=== PATIENT | male | born 1950 | race Caucasian/White ===

== ENCOUNTER 2020-10-02 18:24 | Observation (INO) ==
[2020-10-02] MEDS ORDERED: PIPERACILLIN/TAZOBACTAM 3,375 MG in SODIUM CHLORIDE 0.9% 100 ML IV STA (18:52)
[2020-10-02 19:34] LABS: Basophils % 0.4 % (0.0-0.8); Eosinophils # 0.2 10*3/uL (0.0-0.87); Eosinophils % 1.8 % (0.00-10.9); Hematocrit 40.8 VOL% (42.0-52.0); Hemoglobin 12.8 GM/DL (14.0-18.0); Immature Granulocytes % 0.3 %; Immature Granulocytes Absolute 0.03 #; Lymphocytes # 2.4 10*3/uL (1.4-4.0); Lymphocytes % 25.8 % (21.2-54.2); Mean Corpuscular HGB Conc 31.4 GM/DL (32-36); Mean Corpuscular Volume 83.8 FL (87-102); Mean Platelet Volume 8.3 FL (9.6-12.0); Monocytes % 7.6 % (1.7-12.7); Neutrophils % 64.1 % (38.7-73.9); Platelet Count 276 T/CUMM (130-400); Red Blood Count 4.87 MC/CUMM (3.8-5.5); Red Cell Distribution Width 12.8 % (9.3-17.3); White Blood Count 9.3 T/CUMM (4-12)
[2020-10-02 19:53] LABS: Alanine Aminotransferase 52 U/L (16-61); Albumin 2.9 G/DL (3.4-5.0); Alkaline Phosphatase 86 U/L (45-117); Aspartate Amino Transferase 89 U/L (0-37); Bilirubin,Total < 0.39 MG/DL (0.2-1.0); Blood Urea Nitrogen 14 MG/DL (7-18); Calcium 9.4 MG/DL (8.5-10.1); Carbon Dioxide 28 MMOL/L (21-32); Estimated Glom Filtration Rate 73 ML/MIN; Glucose 65 MG/DL (74-106); Osmolality,Calculated 271.8 MOS/KG (273-304); Potassium 4.2 MMOL/L (3.5-5.1); Sodium 137 MMOL/L (136-145); Total Protein 7.6 G/DL (6.4-8.3)
[2020-10-02] MEDS ORDERED: ONDANSETRON 4 MG/2 ML VIAL IV PRN (21:09)
[2020-10-02] MEDS ORDERED: MORPHINE 4 MG/1 ML VIAL IV PRN (21:09)
[2020-10-02] MEDS ORDERED: ACETAMINOPHEN 325 MG TABLET PO PRN (21:09)
[2020-10-02] MEDS ORDERED: NICOTINE 21 MG/24 HR PATCH TRANSDERM PRN (21:09)
[2020-10-02] MEDS ORDERED: DEXTROSE 50% 25 GM/50 ML VIAL IV PRN (21:09)
[2020-10-02] MEDS ORDERED: GLUCAGON 1 MG VIAL IM PRN (21:09)
[2020-10-03] MEDS: VANCOMYCIN INJ 2,000 MG in SODIUM CHLORIDE 0.9% 500 ML IV SCH ×2 (00:10→16:24)
[2020-10-03 05:58] LABS: Basophils % 0.5 % (0.0-0.8); Eosinophils # 0.3 10*3/uL (0.0-0.87); Eosinophils % 3.3 % (0.00-10.9); Hematocrit 39.7 VOL% (42.0-52.0); Hemoglobin 12.6 GM/DL (14.0-18.0); Immature Granulocytes % 0.7 %; Immature Granulocytes Absolute 0.05 #; Lymphocytes # 2.2 10*3/uL (1.4-4.0); Lymphocytes % 28.1 % (21.2-54.2); Mean Corpuscular HGB Conc 31.7 GM/DL (32-36); Mean Corpuscular Volume 82.5 FL (87-102); Mean Platelet Volume 8.4 FL (9.6-12.0); Monocytes % 9.8 % (1.7-12.7); Neutrophils % 57.6 % (38.7-73.9); Platelet Count 266 T/CUMM (130-400); Red Blood Count 4.81 MC/CUMM (3.8-5.5); Red Cell Distribution Width 12.8 % (9.3-17.3); White Blood Count 7.7 T/CUMM (4-12)
[2020-10-03 08:09] LABS: Calcium 8.8 MG/DL (8.5-10.1); Osmolality,Calculated 275.8 MOS/KG (273-304); Potassium 4.3 MMOL/L (3.5-5.1)
[2020-10-03] MEDS: INSULIN REGULAR 100 UNIT/ML SUBCUT SCH ×4 (09:26→20:51)
[2020-10-03] MEDS: GABAPENTIN 300 MG CAPSULE PO SCH ×3 (09:27→21:27)
[2020-10-03] MEDS: TOLTERODINE LA 4 MG CAPSULE PO SCH (09:27)
[2020-10-03] MEDS: lisinopriL 10 MG TABLET PO SCH (09:27)
[2020-10-03] MEDS: FLUoxetine 20 MG CAPSULE PO SCH (09:27)
[2020-10-03] MEDS: clonazePAM 0.5 MG TABLET PO SCH ×2 (09:27→21:27)
[2020-10-03] MEDS: OXYBUTYNIN XL 15 MG TABLET PO SCH (09:27)
[2020-10-03] MEDS: PIPERACILLIN/TAZOBACTAM 3,375 MG in SODIUM CHLORIDE 0.9% 100 ML IV SCH ×3 (09:44→21:29)
[2020-10-03] MEDS ORDERED: BUPIVACAINE MPF 0.25% 30 ML VIAL ONE (09:56)
[2020-10-03] MEDS ORDERED: LIDOCAINE 1% 20 ML VIAL ONE (09:56)
[2020-10-03] MEDS ORDERED: propofoL 200 MG/20 ML VIAL IV ONE (10:28)
[2020-10-03] MEDS ORDERED: LIDOCAINE 2% 5 ML VIAL ONE (10:28)
[2020-10-03] MEDS ORDERED: fentaNYL 100 MCG/2 ML VIAL ONE (10:28)
[2020-10-03] MEDS ORDERED: MIDAZOLAM 2 MG/2 ML VIAL ONE (10:29)
[2020-10-03] MEDS ORDERED: SODIUM CHLORIDE 0.9% 1,000 ML IV SCH (18:30)
[2020-10-03] MEDS: ROSUVASTATIN 10 MG TABLET PO SCH (21:27)
[2020-10-03] MEDS: AMITRIPTYLINE 50 MG TABLET PO SCH (21:28)
[2020-10-03] MEDS: PRAZOSIN 1 MG CAPSULE PO SCH (21:29)
[2020-10-03] MEDS: ENOXAPARIN 40 MG/0.4 ML SYRINGE SUBCUT SCH (21:33)
[2020-10-04 05:40] LABS: Basophils % 0.5 % (0.0-0.8); Eosinophils # 0.2 10*3/uL (0.0-0.87); Eosinophils % 3.3 % (0.00-10.9); Hematocrit 35.8 VOL% (42.0-52.0); Hemoglobin 11.4 GM/DL (14.0-18.0); Immature Granulocytes % 0.5 %; Immature Granulocytes Absolute 0.03 #; Lymphocytes # 2.1 10*3/uL (1.4-4.0); Mean Corpuscular HGB Conc 31.8 GM/DL (32-36); Mean Corpuscular Volume 81.7 FL (87-102); Mean Platelet Volume 8.7 FL (9.6-12.0); Monocytes % 8.3 % (1.7-12.7); Neutrophils % 55.4 % (38.7-73.9); Platelet Count 258 T/CUMM (130-400); Red Blood Count 4.38 MC/CUMM (3.8-5.5); Red Cell Distribution Width 12.7 % (9.3-17.3); White Blood Count 6.6 T/CUMM (4-12)
[2020-10-04] MEDS: LEVOTHYROXINE 100 MCG TABLET PO SCH (05:55)
[2020-10-04] MEDS: PIPERACILLIN/TAZOBACTAM 3,375 MG in SODIUM CHLORIDE 0.9% 100 ML IV SCH ×3 (05:55→21:15)
[2020-10-04 06:06] LABS: Calcium 8.7 MG/DL (8.5-10.1); Osmolality,Calculated 276.8 MOS/KG (273-304)
[2020-10-04] MEDS: INSULIN REGULAR 100 UNIT/ML SUBCUT SCH ×4 (08:48→21:27)
[2020-10-04] MEDS: clonazePAM 0.5 MG TABLET PO SCH ×2 (09:09→21:15)
[2020-10-04] MEDS: FLUoxetine 20 MG CAPSULE PO SCH (09:10)
[2020-10-04] MEDS: TOLTERODINE LA 4 MG CAPSULE PO SCH (09:10)
[2020-10-04] MEDS: OXYBUTYNIN XL 15 MG TABLET PO SCH (09:10)
[2020-10-04] MEDS: GABAPENTIN 300 MG CAPSULE PO SCH ×3 (09:10→21:16)
[2020-10-04] MEDS: lisinopriL 10 MG TABLET PO SCH (09:10)
[2020-10-04] MEDS: VANCOMYCIN INJ 2,000 MG in SODIUM CHLORIDE 0.9% 500 ML IV SCH (11:58)
[2020-10-04] MEDS: DESITIN 4OZ/NYSTATIN 15 GRAM MIXTURE PASTE TOP SCH ×2 (15:07→21:21)
[2020-10-04] MEDS: ENOXAPARIN 40 MG/0.4 ML SYRINGE SUBCUT SCH (21:13)
[2020-10-04] MEDS: PRAZOSIN 1 MG CAPSULE PO SCH (21:15)
[2020-10-04] MEDS: ROSUVASTATIN 10 MG TABLET PO SCH (21:16)
[2020-10-04] MEDS: AMITRIPTYLINE 50 MG TABLET PO SCH (21:16)
[2020-10-05 05:32] LABS: Basophils # 0.1 10*3/uL (0.0-0.2); Basophils % 0.7 % (0.0-0.8); Eosinophils # 0.3 10*3/uL (0.0-0.87); Eosinophils % 3.8 % (0.00-10.9); Hematocrit 36.7 VOL% (42.0-52.0); Hemoglobin 11.7 GM/DL (14.0-18.0); Immature Granulocytes % 0.4 %; Immature Granulocytes Absolute 0.03 #; Lymphocytes # 2.5 10*3/uL (1.4-4.0); Lymphocytes % 35.1 % (21.2-54.2); Mean Corpuscular HGB Conc 31.9 GM/DL (32-36); Mean Corpuscular Volume 82.5 FL (87-102); Mean Platelet Volume 8.3 FL (9.6-12.0); Platelet Count 257 T/CUMM (130-400); Red Blood Count 4.45 MC/CUMM (3.8-5.5); Red Cell Distribution Width 12.6 % (9.3-17.3); White Blood Count 7.2 T/CUMM (4-12)
[2020-10-05] MEDS: VANCOMYCIN INJ 2,000 MG in SODIUM CHLORIDE 0.9% 500 ML IV SCH (05:52)
[2020-10-05] MEDS: LEVOTHYROXINE 100 MCG TABLET PO SCH (05:55)
[2020-10-05 06:03] LABS: Calcium 8.9 MG/DL (8.5-10.1); Osmolality,Calculated 275.7 MOS/KG (273-304); Potassium 4.1 MMOL/L (3.5-5.1)
[2020-10-05 08:11] VITALS: BP 158/78
[2020-10-05] MEDS: INSULIN REGULAR 100 UNIT/ML SUBCUT SCH (09:15)
[2020-10-05] MEDS: TOLTERODINE LA 4 MG CAPSULE PO SCH (09:16)
[2020-10-05] MEDS: clonazePAM 0.5 MG TABLET PO SCH (09:16)
[2020-10-05] MEDS: GABAPENTIN 300 MG CAPSULE PO SCH (09:16)
[2020-10-05] MEDS: OXYBUTYNIN XL 15 MG TABLET PO SCH (09:16)
[2020-10-05] MEDS: FLUoxetine 20 MG CAPSULE PO SCH (09:16)
[2020-10-05] MEDS: lisinopriL 10 MG TABLET PO SCH (09:16)
[2020-10-05] MEDS: DESITIN 4OZ/NYSTATIN 15 GRAM MIXTURE PASTE TOP SCH (10:37)
== END 2020-10-05 11:47 | disposition home health service (06) ==
LOC: EDBD → EDUNIT# → N.ED 18:24 → N.3E 18:24 → SUATTDRO 21:09 → N.3E 22:35
PROVIDERS: ADMIT Internal Medicine; ATTEND Internal Medicine

== ENCOUNTER 2021-04-23 18:32 | Inpatient (IN) ==
[2021-04-23] MEDS ORDERED: SODIUM CHLORIDE 0.9% 1,000 ML IV STA (22:30)
[2021-04-23 23:23] LABS: Basophils % 0.4 % (0.0-0.8); Eosinophils # 0.1 10*3/uL (0.0-0.87); Eosinophils % 1.1 % (0.00-10.9); Hematocrit 39.6 VOL% (42.0-52.0); Hemoglobin 12.3 GM/DL (14.0-18.0); Immature Granulocytes % 0.5 %; Immature Granulocytes Absolute 0.06 #; Lymphocytes % 18.6 % (21.2-54.2); Mean Corpuscular HGB Conc 31.1 GM/DL (32-36); Mean Corpuscular Volume 84.8 FL (87-102); Mean Platelet Volume 8.7 FL (9.6-12.0); Monocytes % 11.8 % (1.7-12.7); Neutrophils % 67.6 % (38.7-73.9); Platelet Count 236 T/CUMM (130-400); Red Blood Count 4.67 MC/CUMM (3.8-5.5); Red Cell Distribution Width 14.2 % (9.3-17.3)
[2021-04-23 23:33] LABS: PT Patient Result 11.1 SECS (10.5-12.0); Partial Thromboplastin Time 27.5 SECS (23.9-33.8)
[2021-04-23 23:59] LABS: Alanine Aminotransferase 36 U/L (16-61); Albumin 3.1 G/DL (3.4-5.0); Alkaline Phosphatase 75 U/L (45-117); Aspartate Amino Transferase 36 U/L (0-37); Bilirubin,Total < 0.39 MG/DL (0.20-1.00); Blood Urea Nitrogen 39 MG/DL (7-18); Calcium 8.3 MG/DL (8.5-10.1); Carbon Dioxide 19 MMOL/L (21-32); Estimated Glom Filtration Rate 17 ML/MIN; Glucose 81 MG/DL (74-106); Osmolality,Calculated 275.2 MOS/KG (273-304); Potassium 4.8 MMOL/L (3.5-5.1); Sodium 134 MMOL/L (136-145); Total Protein 7.3 G/DL (6.4-8.2)
[2021-04-24] MEDS ORDERED: GLUCAGON 1 MG VIAL IM PRN (01:46)
[2021-04-24] MEDS ORDERED: DEXTROSE 50% 25 GM/50 ML VIAL IV PRN (01:46)
[2021-04-24] MEDS ORDERED: ONDANSETRON 4 MG/2 ML VIAL IV PRN (01:47)
[2021-04-24] MEDS ORDERED: hydrALAZINE 20 MG/1 ML VIAL IV PRN (01:47)
[2021-04-24] MEDS ORDERED: DOCUSATE SODIUM 100 MG CAPSULE PO PRN (01:47)
[2021-04-24] MEDS: SODIUM CHLORIDE 0.9% 1,000 ML IV SCH ×2 (03:08→19:04)
[2021-04-24 04:33] LABS: Basophils % 0.3 % (0.0-0.8); Eosinophils # 0.1 10*3/uL (0.0-0.87); Eosinophils % 0.9 % (0.00-10.9); Hematocrit 38.3 VOL% (42.0-52.0); Hemoglobin 12.2 GM/DL (14.0-18.0); Immature Granulocytes % 0.4 %; Immature Granulocytes Absolute 0.04 #; Lymphocytes # 1.4 10*3/uL (1.4-4.0); Lymphocytes % 13.9 % (21.2-54.2); Mean Corpuscular HGB Conc 31.9 GM/DL (32-36); Mean Corpuscular Volume 85.7 FL (87-102); Mean Platelet Volume 8.7 FL (9.6-12.0); Monocytes % 9.7 % (1.7-12.7); Neutrophils % 74.8 % (38.7-73.9); Platelet Count 231 T/CUMM (130-400); Red Blood Count 4.47 MC/CUMM (3.8-5.5); White Blood Count 9.8 T/CUMM (4-12)
[2021-04-24 05:08] LABS: Calcium 8.1 MG/DL (8.5-10.1); Osmolality,Calculated 277.2 MOS/KG (273-304); Potassium 5.6 MMOL/L (3.5-5.1); Risk Ratio 3.3; Thyroid Stimulating Hormone 0.625 uIU/ml (0.358-3.74)
[2021-04-24] MEDS: INSULIN LISPRO 100 UNIT/ML SUBCUT SCH ×4 (07:29→22:37)
[2021-04-24] MEDS: ACETAMINOPHEN 325 MG TABLET PO PRN ×2 (08:20→09:49)
[2021-04-24] MEDS: ASPIRIN EC 325 MG TABLET PO SCH (09:50)
[2021-04-24] MEDS: ENOXAPARIN 30 MG/0.3 ML SYRINGE SUBCUT SCH (09:50)
[2021-04-24 12:46] LABS: Barbiturates Screen,Urine Negative (Negative); Benzodiazepines Screen,Urine Negative (Negative); Cannabinoid Screen,Urine Negative (Negative); Opiate Screen,Urine Negative (Negative); Phencyclidine Screen,Urine Negative (Negative)
[2021-04-24 12:50] LABS: Bacteria,Urine Occasional /HPF (Few); Bilirubin,Urine Negative (Negative); Blood, Urine Small mg/dL (Negative); Glucose,Urine (UA) Negative (Negative); Ketones,Urine Negative (Negative); Nitrite,Urine Negative (Negative); Protein,Urine 30 MG/DL; RBC,Urine 1 /HPF (0-4); Squamous Epithelial Cell,Urine Occasional /HPF (0-10); Urine Appearance CLEAR (Clear); Urine Color Yellow (Yellow); Urine Urobilinogen < 2.0 EU/DL (0.2-1.0)
[2021-04-24] MEDS ORDERED: ROSUVASTATIN 20 MG TABLET PO SCH (21:00)
[2021-04-25] MEDS: SODIUM CHLORIDE 0.9% 1,000 ML IV SCH ×2 (02:59→03:01)
[2021-04-25] MEDS: INSULIN LISPRO 100 UNIT/ML SUBCUT SCH ×2 (06:59→13:17)
[2021-04-25] MEDS ORDERED: DESITIN 4OZ/NYSTATIN 15 GRAM MIXTURE PASTE TOP SCH (10:04)
[2021-04-25] MEDS: ENOXAPARIN 30 MG/0.3 ML SYRINGE SUBCUT SCH (10:43)
[2021-04-25] MEDS: ASPIRIN EC 325 MG TABLET PO SCH (10:43)
[2021-04-25 12:24] VITALS: BP 159/68
== END 2021-04-25 15:10 | disposition home health service (06) | DRG 683 ==
LOC: EDUNIT# → EDBD → N.EDINP 18:32 → N.ED 18:32 → N.EDINP 04-24 12:00 → N.3E 04-24 15:00
PROVIDERS: ADMIT Internal Medicine; ATTEND Internal Medicine